=== PATIENT | female | born 1965 | race Hispanic/Latino ===

== ENCOUNTER → 2019-07-28 | Outpatient (CLI) | payer OTHER ==
--- NOTE | 2019-07-28 12:26 | Diagnostic Imaging Report ---
Right upper quadrant abdominal ultrasound, 07/28/2019. History: Elevated liver enzymes. Comparison: None available. Discussion: Transverse and longitudinal images of the right upper quadrant of the abdomen were obtained demonstrating a liver of normal size and increased echogenicity measuring 13.1 cm in length. There is no evidence of a focal hepatic mass. The portal vein is patent with hepatopetal flow and is within normal limits measuring 10 mm in diameter. The biliary tree is within normal limits with the common bile duct measuring 2 mm in diameter. The gallbladder is normal without evidence of stones, wall thickening, or pericholecystic fluid. The sonographic Easley's sign was negative. The right kidney is normal in size and echogenicity without evidence of hydronephrosis, stones, or mass and measures 10.0 cm in length. The pancreatic body and proximal tail are visualized and are normal in appearance. The abdominal aorta is within normal limits. There is no evidence of free fluid. IMPRESSION: Increased echogenicity of the liver compatible with hepatic steatosis. No focal hepatic masses identified. Signed by: Zion Haley MD on 07/28/2019 12:23 PM
== END ==
LOC: US 10:52
PROVIDERS: ATTEND Family Medicine
DX: R74.8 Abnormal levels of other serum enzymes (principal)
CPT/HCPCS: 76705